=== PATIENT | female | born 1965 | race Hispanic/Latino ===

== ENCOUNTER 2021-06-27 09:19 | Day surgery (SDC) | payer BC ==
[2021-06-25 13:13] LABS: Absolute Lymphocytes (CBC) 1.7 K/uL (0.7-4.9); Hematocrit 39.3 % (36.0-45.0); Lymphocytes % 26.7 % (15.3-44.8); MPV 8.8 fL (7.6-11.3); RBC Red Blood Cell Count 4.33 M/uL (3.86-4.86)
[2021-06-25 13:28] LABS: Potassium 4.5 mmol/L (3.5-5.1)
[2021-06-27] MEDS ORDERED: CEFAZOLIN SODIUM 1 GM/VIAL ONE (09:38)
[2021-06-27] MEDS ORDERED: NA CHLORIDE 0.9% 50 ML ONE (09:39)
[2021-06-27] MEDS ORDERED: Ringers Lactate 1,000 ML IV ONE ×2 (09:39→12:53)
[2021-06-27] MEDS ORDERED: MIDAZOLAM HCL 2 MG/2 ML INJ ONE ×2 (09:47)
[2021-06-27] MEDS ORDERED: LIDOCAINE 1% MPF 5 ML VIAL ONE (09:47)
[2021-06-27] MEDS ORDERED: FENTANYL CITR 100 MCG/2 ML ONE (09:47)
[2021-06-27] MEDS ORDERED: SODIUM BICARB 50 MEQ/50ML VIAL ONE (09:47)
[2021-06-27] MEDS ORDERED: dexAMETHasone 10 MG/ML VIAL ONE ×2 (09:47→10:50)
[2021-06-27] MEDS ORDERED: ROPLVACAINE HCL 40 ML ONE (09:48)
[2021-06-27] MEDS ORDERED: propofoL 200 MG/20 ML VIAL IV ONE (10:50)
[2021-06-27] MEDS ORDERED: LIDOCAINE 2% MPF 5 ML VIAL ONE (10:50)
[2021-06-27] MEDS ORDERED: KETOROLAC 30 MG/ML INJ ONE (10:50)
[2021-06-27] MEDS ORDERED: ONDANSETRON 4 MG/2 ML VIAL ONE (10:51)
[2021-06-27 15:22] VITALS: BP 163/90; TEMP 97; O2SAT 99
--- NOTE | 2021-06-27 16:25 | RAD REPORT ---
EXAM DESCRIPTION: RAD - Wrist Left 2 View - 06/27/2021 3:12 pm CLINICAL HISTORY: Left wrist pain status post injury FINDINGS: Fluoroscopy time 1.5 minutes. Twenty-four fluoroscopic spot images obtained Open reduction internal fixation of a comminuted radial fracture by plate and screws. Examination was performed by Dr. Johnson
--- NOTE | 2021-06-27 23:18 | OP ---
Date of Procedure: 06/27/2021 Surgeon: Chacho Johnson MD Preoperative Diagnosis: Complex intra-articular fracture of distal radius. Postoperative Diagnosis: Complex intra-articular fracture of distal radius. Procedure: Open reduction and internal fixation of complex intra-articular distal radius with fixati on of 3 intra-articular fragments. Estimated Blood Loss: 20 cc. Complications: There were no complications. Specimens: There were no pathology specimens sent. Indication For Operation: Ms. Turcios is a patient who unfortunately fell injuring her left upper extremity. She was seen and examined in the Emergency Department and placed into a splint and sent t o my office. On physical examination, she is neurovascularly intact. Great care is taken to ensure that she does not have any median nerve paresthesias as her wrist is essentially shattered in innumer able pieces, however the articular surface having some fracture lines that appears to be more or less congruent. Risks, benefits, and alternatives of different methods of treating this have been discus sed with the patient. She states she understands things as presented and wishes to proceed. She kno ws that we may proceed with pinning, plating, external fixation or perhaps a combination and those ri sks were discussed with her. Description Of Procedure: The patient was taken to the operating room and placed in supine position. General anesthesia was obtained by the staff. Following this, well-padded tourniquet was placed on superior left arm. Left upper extremity was then prepped and draped in usual sterile fashion for th e procedure. Following this, the arm was then elevated, but not exsanguinated. A standard volar brendan zamarripa of incision was then taken down carefully through skin and soft tissues. Meticulous hemostasis was being maintained using bipolar electrocautery. This leads down to the flexor carpi radialis, wh ich was gently removed radialward to protect the radial artery. The shaft of the radius was exposed by gentle movement of the flexor pollicis longus muscle belly and tendon, which was retracted ulnarwa rd to protect the median nerve. The shaft was then exposed up to the fracture site. The pronator qu adratus was removed from this more proximal fragment. The distal fragment is not seen as the pronato r quadratus has essentially flipped itself into the fracture site. Gentle use of forceps is used to remove the pronator quadratus and the remainder of the pronator quadratus was released from the radia l aspect of the wrist. This allowed for visualization of the fracture site, which was then cleared. After this, combination of traction and other reduction techniques including [place] elevator were the n used to achieve best reduction possible. It is noted that there is a large cortical more or less d iamond-shaped piece; however, we can easily see that the volar portion is well approximated. Decisio n was made to move forward with a longer volar radius plate. This was then affixed in appropriate po sition and appeared to hold this well. The toggle screws were removed at the end as it appeared to b e pressing the more dorsal fragment out of alignment. After this, it was gently irrigated and the sk in was closed using nylon sutures and patient was placed in extremely well-padded sugar-tong splint a nd taken to recovery room in good condition. There were no complications. SE/MODL Voice ID: [id number] Report ID: [id number]
== END 2021-06-27 14:00 | disposition home or self-care (01) ==
LOC: OR 09:19
PROVIDERS: ATTEND Orthopaedic Surgery
PROC: 0PSJ04Z Reposition Left Radius with Internal Fixation Device, Open Approach (ICD-10-PCS; principal; 2021-06-27 11:00)
DX: S52.572A Other intraarticular fracture of lower end of left radius, initial encounter for closed fracture (principal); M25.532 Pain in left wrist; Z20.822 Contact with and (suspected) exposure to COVID-19
CPT/HCPCS: 93005; 85025; 80048; 36415; 73100; 25609; U0003; J2704; J2250 ×2; J3010; J1100 ×2; J2795; J7120 ×2; J2405; J0690